=== PATIENT | female | born 1995 | race Caucasian/White ===

== ENCOUNTER 2017-04-19 20:07 | Emergency (ER) | payer OTHER ==
[2017-04-19 20:18] VITALS: BP 127/84
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
[2017-04-19] MEDS ORDERED: Acetaminophen/oxyCODONE 325-5 MG Tab PO ONE (20:51)
== END 2017-04-19 21:21 | disposition home or self-care (01) ==
LOC: LL.ED 20:07
DX: S69.92XA Unspecified injury of left wrist, hand and finger(s), initial encounter (principal); Y04.8XXA Assault by other bodily force, initial encounter
CPT/HCPCS: 73110; 73130; 99283; A9270; 29125